=== PATIENT | female | born 2000 | race Caucasian/White ===

== ENCOUNTER 2024-01-16 01:23 | Emergency (ER) | payer OTHER ==
[~2024-01-16] VITALS: Ht 167.6 cm; Wt 81.6 kg
[2024-01-16 01:28] VITALS: BP 128/70; PULSE 80; RESP 18; TEMP 208.4; TEMP 98; O2SAT 99
[2024-01-16] MEDS: LIDOCAINE MPF 1% 10 MG/ML VIAL INJ ONE (02:17)
[2024-01-16] MEDS ORDERED: NAPR-337 PO (02:46)
[2024-01-16] MEDS ORDERED: BACITRACIN OINT 500 UNITS/GM PKT TP ONE (02:54)
[2024-01-16] MEDS: BACITRACIN OINT 500 UNITS/GM PKT TP ONE (03:20)
== END 2024-01-16 02:59 | disposition home or self-care (01) ==
LOC: MED 01:23
DX: S91.202A Unspecified open wound of left great toe with damage to nail, initial encounter (principal); X50.0XXA Overexertion from strenuous movement or load, initial encounter; Y93.89 Activity, other specified; Y92.89 Other specified places as the place of occurrence of the external cause; Y99.8 Other external cause status
CPT/HCPCS: 11730; 99284; J2001